=== PATIENT | male | born 1990 | race African-American/Black ===

== ENCOUNTER 2020-07-25 01:19 | Emergency (ER) | payer OTHER ==
[~2020-07-25] VITALS: Ht 177.8 cm; Wt 99.8 kg
[2020-07-25 01:27] VITALS: BP 142/86
[2020-07-25] MEDS ORDERED: HYDROCODONE/APAP 5/325MG TABLET ONE (03:54)
[2020-07-25] MEDS ORDERED: IBUPROFEN 400 MG TABLET ONE (03:55)
[2020-07-25] MEDS ORDERED: IBUPROFEN 400 MG TABLET PO ONE (04:00)
[2020-07-25] MEDS ORDERED: HYDROCODONE/APAP 5/325MG TABLET PO ONE (04:00)
== END 2020-07-25 04:32 | disposition home or self-care (01) ==
LOC: ER 01:21
DX: S93.492A Sprain of other ligament of left ankle, initial encounter (principal); F17.200 Nicotine dependence, unspecified, uncomplicated; Z59.0 Homelessness; X50.1XXA Overexertion from prolonged static or awkward postures, initial encounter; Y93.89 Activity, other specified; Y92.89 Other specified places as the place of occurrence of the external cause; Y99.8 Other external cause status
CPT/HCPCS: 73610-TC; 73630-TC